=== PATIENT | female | born 1935 | race Caucasian/White ===

== ENCOUNTER 2017-02-21 10:38 | Outpatient (CLI) | payer MEDICARE, OTHER ==
--- NOTE | 2017-02-22 15:49 | Mammography Report ---
DIGITAL SCREENING MAMMOGRAM: 02/21/2017 CLINICAL INDICATION: An 81-year-old with personal history of left breast cancer, status post lumpecto my and radiation therapy, family history of breast cancer. COMPARISON: 02/2016, 12/2014, 12/2013, 12/2012. TECHNIQUE: Routine CC and MLO projections were obtained of the breasts. FINDINGS: The breasts demonstrate fatty replacement bilaterally. Coarse and punctate, typically yolie gn calcifications are present. Postoperative and posttreatment changes in the left breast are stable. No suspicious masses, clustered microcalcifications, or regions of architectural distortion are iden tified. IMPRESSION: BENIGN FINDINGS. RECOMMENDATION: ROUTINE ANNUAL SCREENING UNLESS OTHERWISE CLINICALLY INDICATED. BIRADS CATEGORY 2-BENIGN FINDINGS. STANDARD QUALIFYING STATEMENTS 1. This examination was reviewed with the aid of Computer-Aided Detection (CAD). 2. A negative or benign imaging report should not delay biopsy if clinically suspicious findings are present. Consider surgical consultation if warranted. More than 5% of cancers are not identified by i maging. 3. Dense breasts may obscure an underlying neoplasm. JOB #: [id number] EXT JOB #:[id number]
== END 2017-02-21 10:39 | disposition home or self-care (01) ==
LOC: DI.N 10:38
PROVIDERS: ATTEND Physician Assistant
DX: Z12.31 Encounter for screening mammogram for malignant neoplasm of breast (principal); Z85.3 Personal history of malignant neoplasm of breast
CPT/HCPCS: 77067

== ENCOUNTER 2018-03-13 09:13 | Outpatient (CLI) | payer MEDICARE, OTHER ==
--- NOTE | 2018-03-16 13:57 | Mammography Report ---
Reason: SCREENING MAMMO, HX BREAST CA Procedure Date: 03/13/2018 Accession Number: [id number] / [id number] Procedure: [facility]LENA - Screening Mammo Dig Bilat CPT Code: FULL RESULT: EXAM: Screening Mammo Dig Bilat DATE: 03/13/2018 10:25 AM CLINICAL HISTORY: Screening mammogram TECHNIQUE: Bilateral CC and MLO views were obtained. COMPARISON: Mammogram 02/21/2017 FINDINGS: There are scattered fibroglandular densities. There is stable breast asymmetry and benign-appearing calcifications. No suspicious masses, clustered microcalcifications, or regions of architectural distortion are identified. IMPRESSION: Benign findings RECOMMENDATION: Routine annual screening unless otherwise clinically indicated. BIRADS CATEGORY 2: Benign findings STANDARD QUALIFYING STATEMENTS: 1. This examination was reviewed with the aid of Computer-Aided Detection (CAD). 2. A negative or benign imaging report should not delay biopsy if clinically suspicious findings are present. Consider surgical consultation if warrented. More than 5% of cancers are not identified by imaging. 3. Dense breasts may obscure an underlying neoplasm.
== END 2018-03-13 09:14 | disposition home or self-care (01) ==
LOC: DI 09:13
DX: Z12.31 Encounter for screening mammogram for malignant neoplasm of breast (principal)
CPT/HCPCS: 77067

== ENCOUNTER 2018-12-28 11:21 | Emergency (ER) | payer MEDICARE, OTHER ==
--- NOTE | 2018-12-28 11:45 | ED Physician Documentation ---
History of Present Illness - Stated complaint Stated Complaint: ABDOMINAL PX - Chief complaint Chief Complaint: Abd Pain - History obtained from History obtained from: Patient - History of Present Illness Timing: Prior to arrival - Additonal information Additional information: Patient is an 83-year-old female with complicated past medical history including multiple abdominal surgeries such as colostomy presenting with midline abdominal pain near her colostomy, as well as decreased stool output, nausea, and vomiting of dark material that started earlier today. Patient denies any complications with her stoma or colostomy and reports normal output until just recently. Patient denies fever, chills, or urinary changes. No other improving or worsening factors noted. 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: Tubal ligation, Hysterectomy, Oophrectomy Cardiovascular: CABG HEENT: Tonsil/Adenoidectomy - Present Medications Home Medications: Ambulatory Orders Medication Instructions Recorded Confirmed Diltiazem HCl [Dilt-Cd] 120 mg PO ONCEDAILY 01/23/13 03/23/15 Hydrochlorothiazide 50 mg PO ONCEDAILY 01/23/13 03/23/15 Levothyroxine [Synthroid] 75 mcg PO QDAC 01/23/13 03/23/15 Lisinopril [Zestril] 40 mg PO ONCEDAILY 01/23/13 03/23/15 Simvastatin 40 mg PO ONCEDAILY 01/23/13 03/23/15 Aspirin 81 mg 03/23/15 03/23/15 HYDROcod/ACETAM 5/325 [[place] 5/325] 1 ea PO Q6H PRN #15 tablet 03/23/15 Potassium Chloride [Klor-Con 10] 10 meq 03/23/15 03/23/15 Trimethoprim 100 mg 03/23/15 03/23/15 predniSONE [Deltasone] 40 mg PO DAILY 5 Days tablet 03/23/15 - Allergies Allergies/Adverse Reactions: Allergies Allergy/AdvReac Type Severity Reaction Status Date / Time azithromycin Allergy Unknown unknown Verified 03/23/15 10:10 dicloxacillin [Dicloxacillin] Allergy Unknown unknown Verified 03/23/15 10:10 - Social History Does the pt smoke?: No Smoking Status: Never smoker Does the pt drink ETOH?: No Does the pt have substance abuse?: No - Immunizations Immunizations are current?: Yes PD ED PE NORMAL - Vitals Vital signs reviewed: Yes - General General: Alert and oriented X 3, No acute distress, Well developed/nourished - HEENT HEENT: Atraumatic, Moist mucous membranes - Cardiac Cardiac: RRR, No murmur - Respiratory Respiratory: No respiratory distress, Clear bilaterally - Abdomen Abdomen: Soft. No: Non tender (Extremely mild tenderness in midline just right to the colostomy. Difficult to visualize stoma given opaque bag, but no obvious drainage, erythema, tenderness or other complications noted.) - Derm Derm: Normal color, Warm and dry, No rash - Extremities Extremities: No deformity, No tenderness to palpate - Neuro Neuro: Alert and oriented X 3, No motor deficit, No sensory deficit - Psych Psych: Normal mood, Normal affect Results - Vitals Vitals: Vital Signs - 24 hr 12/28/18 12/28/18 11:40 15:47 Temperature 36.7 C Heart Rate 67 80 Respiratory 18 14 Rate Blood Pressure 169/56 H 159/66 H O2 Saturation 97 99 Oxygen O2 Source Room air - Labs Labs: Laboratory Tests 12/28/18 12/28/18 12/28/18 12:03 12:03 12:03 WBC 14.2 H RBC 3.47 L Hgb 11.0 L Hct 33.3 L MCV 96.0 MCH 31.7 H MCHC 33.0 RDW 12.9 Plt Count 313 MPV 10.1 Neut # (Auto) 11.5 H Lymph # (Auto) 1.6 [place] # (Auto) 0.8 Eos # (Auto) 0.2 Baso # (Auto) 0.0 Absolute Nucleated RBC 0.00 Nucleated RBC % 0.0 PT 12.4 INR 1.1 APTT 24.5 L Sodium 142 Potassium 4.3 Chloride 105 Carbon Dioxide 23 Anion Gap 14.0 H BUN 33 H Creatinine 1.3 H Estimated GFR (MDRD) 39 L Glucose 173 H Lactic Acid Calcium 9.4 Total Bilirubin 0.6 AST 28 ALT 25 Alkaline Phosphatase 80 Total Protein 7.1 Albumin 3.8 Globulin 3.3 Albumin/Globulin Ratio 1.2 Lipase 73 H Urine Color Urine Clarity Urine pH Ur Specific [place] Urine Protein Urine Glucose (UA) Urine Ketones Urine Occult Blood Urine Nitrite Urine Bilirubin Urine Urobilinogen Ur Leukocyte Esterase Urine RBC Urine WBC Ur Squamous Epith Cells Urine Bacteria Urine Casts Ur Microscopic Review Urine Culture Comments 12/28/18 12/28/18 12:03 13:25 WBC RBC Hgb Hct MCV MCH MCHC RDW Plt Count MPV Neut # (Auto) Lymph # (Auto) [place] # (Auto) Eos # (Auto) Baso # (Auto) Absolute Nucleated RBC Nucleated RBC % PT INR APTT Sodium Potassium Chloride Carbon Dioxide Anion Gap BUN Creatinine Estimated GFR (MDRD) Glucose Lactic Acid 1.9 Calcium Total Bilirubin AST ALT Alkaline Phosphatase Total Protein Albumin Globulin Albumin/Globulin Ratio Lipase Urine Color YELLOW Urine Clarity SL Urine pH 5.5 Ur Specific [place] 1.015 Urine Protein NEGATIVE Urine Glucose (UA) NEGATIVE Urine Ketones NEGATIVE Urine Occult Blood TRACE-INTA Urine Nitrite NEGATIVE Urine Bilirubin NEGATIVE Urine Urobilinogen 0.2 (NORMAL) Ur Leukocyte Esterase SMALL H Urine RBC 0-5 Urine WBC 6-10 H Ur Squamous Epith Cells MOD Squamous H Urine Bacteria Moderate H Urine Casts 0-2 Hyaline Casts Ur Microscopic Review INDICATED Urine Culture Comments NOT INDICATED PD MEDICAL DECISION MAKING - ED course Complexity details: reviewed old records, reviewed results, re-evaluated patient, considered differential, d/w patient, d/w family ED course: Patient presenting with abdominal pain, nausea, and vomiting concerning for complications with her known colostomy including diverticulitis or small bowel obstruction. Patient does report history of obstructions in the past. Patient has had multiple abdominal surgeries including cholecystectomy, hiatal hernia repair, hysterectomy and more. Patient started on IV fluids and provided nausea and pain medication, which were repeated in the ED as needed. Screening lab work returned relatively unremarkable except for mild leukocytosis at 14.2. Urinalysis showed presence of leukocyte esterase, white blood cells, bacteria, but heavy amount of squamous cells and have lower suspicion for UTI at this time. Initially obtain CT abdomen/pelvis without contrast given patient's allergy which was concerning for small bowel obstruction and upon discussion with radiology and general surgery, gave oral contrast and repeat CT abdomen/pelvis. Repeat CT did not show progression of contrast and confirmed presence of small bowel obstruction. Again spoke with general surgery who also spoke with anesthesia and hospitalist, and all agreed that patient is likely to require transfer given her level of complexity. After discussions with patient and family, this is also her preference. NG placed in ED without complication. Unfortunately, [facility] is unable to accept patients at this time. Contacted [facility] for possible transfer and still awaiting return phone call. Patient family updated. Patient signed out to Dr. Cedeno who will continue with transfer process. Departure - Departure Disposition: 02 Transfer Acute Care Hosp Clinical Impression: Small bowel obstruction
[2018-12-28] MEDS ORDERED: ONDANSETRON 4 MG/2 ML VIAL IVP STA ×3 (11:53→18:06)
[2018-12-28] MEDS ORDERED: SODIUM CHLORIDE 0.9% 1,000 ML IV ONE (11:53)
[2018-12-28] MEDS ORDERED: fentaNYL 100 MCG/2 ML VIAL IVP STA ×2 (11:53→15:57)
[2018-12-28 12:09] LABS: BASOPHILS % (AUTO) 0.2 %; EOSINOPHILS # (AUTO) 0.2 10^3/uL (0.0-0.7); EOSINOPHILS % (AUTO) 1.4 %; LYMPHOCYTES # (AUTO) 1.6 10^3/uL (1.5-3.5); LYMPHOCYTES % (AUTO) 11.3 %; MEAN CORPUSCULAR HEMOGLOBIN 31.7 pg (27.0-31.0); MEAN PLATELET VOLUME 10.1 fL (7.9-10.8); MONOCYTES # (AUTO) 0.8 10^3/uL (0.0-1.0); MONOCYTES % (AUTO) 5.6 %; NEUTROPHILS # (AUTO) 11.5 10^3/uL (1.5-6.6); NEUTROPHILS % (AUTO) 80.9 %; PLT - PLATELET COUNT 313 10^3/uL (130-450); RED BLOOD COUNT 3.47 10^6/uL (4.20-5.40); RED CELL DISTRIBUTION WIDTH 12.9 % (12.0-15.0); WHITE BLOOD COUNT 14.2 x10^3/uL (4.8-10.8)
[2018-12-28 12:20] LABS: INR 1.1 (0.8-1.2); PT - PROTHROMBIN TIME 12.4 secs (9.9-12.6)
[2018-12-28 12:22] LABS: ALBUMIN 3.8 g/dL (3.2-5.5); ALBUMIN/GLOBULIN RATIO 1.2 (1.0-2.2); BILIRUBIN,TOTAL 0.6 mg/dL (0.2-1.0); CALCIUM 9.4 mg/dL (8.5-10.3); CREATININE 1.3 mg/dL (0.4-1.0); TOTAL PROTEIN 7.1 g/dL (6.7-8.2)
[2018-12-28 12:27] LABS: PARTIAL THROMBOPLASTIN TIME 24.5 secs (24.9-33.3)
--- NOTE | 2018-12-28 13:31 | CT Report ---
Reason: Colostomy with pain, nausea, vomiting Procedure Date: 12/28/2018 Accession Number: [id number] / [id number] Procedure: CT - Abdomen/Pelvis WO CPT Code: FULL RESULT: EXAM: CT ABDOMEN AND PELVIS (CT KUB) EXAM DATE: 12/28/2018 01:05 PM. CLINICAL HISTORY: Colostomy with pain, nausea, vomiting. COMPARISONS: ABD/PEL 04/03/2011 9:32 AM. TECHNIQUE: Routine axial helical CT imaging was performed through the abdomen and pelvis without IV contrast. Reconstructions: Coronal and sagittal. In accordance with CT protocol optimization, one or more of the following dose reduction techniques were utilized for this exam: automated exposure control, adjustment of mA and/or KV based on patient size, or use of iterative reconstructive technique. FINDINGS: Examination is limited by absence of intravenous or oral contrast. Lung Bases: Redemonstration of a large fluid-containing hiatal hernia, possibly increased compared to 2010. The patient is status post cholecystectomy. The patient is status post distal colonic resection with colostomy formation and previous parastomal hernia now status post interval ventral mesh repair with persistent large bowel parastomal herniation. Despite fecal material throughout the visualized colon, small bowel obstruction is suspected as the distal small bowel is collapsed and there are multiple dilated loops of small bowel with focal fecalization and maximal small bowel loop dilation in the left lower quadrant, caliber of up to 4.6 cm, see image 22 series 5. Statistically speaking, the etiology is felt to be more likely due to adhesions related to prior surgery; however given abundant fat stranding and fluid in the region and immediate adjacency to the colon with abundant diverticuli, diverticulitis as the instigating event for the small bowel obstruction is not excluded with this study, correlate to evidence of sepsis. No evidence of closed loop configuration on this limited study. No free air. Prominent lymph nodes are seen throughout the mesentery and retroperitoneum, with limitations of the examination. These do not exceed 1 cm in short axis, favor reactive etiology. Adrenal glands are nonspecifically thickened on both sides, no discrete mass is seen. The pancreas contains an apparent 1.7 x 1.4 cm cystic lesion as seen on image 20 series 3 and image 21 series 5. Right kidney contains 4.0 x 3.9 cm exophytic cystic lesion which measures slightly greater than simple water by attenuation, statistically most likely benign but not characterized on this examination. The noncontrast liver, spleen and left kidney are unremarkable. No aggressive osseous lesions are seen. IMPRESSION: Small bowel obstruction in the left lower quadrant with considerations related to prior surgery and diverticulosis as described in detail above. Cystic pancreatic lesion, characterization and/or on follow-up on a routine basis as clinically indicated. Uncharacterized right renal cyst as described. Characterization and/or follow-up on a routine basis as clinically indicated. CRITICAL RESULT: The findings were discussed with Dr. Craig on 12/28/2018 at approximately 1:30 PM. RADIA
[2018-12-28 13:37] LABS: BILIRUBIN,URINE NEGATIVE (NEGATIVE); GLUCOSE, URINE (UA) NEGATIVE (NEGATIVE); KETONES,URINE (UA) NEGATIVE (NEGATIVE); LEUKOCYTE ESTERASE, URINE SMALL (NEGATIVE); NITRITE,URINE NEGATIVE (NEGATIVE); OCCULT BLOOD,URINE TRACE-INTA (NEGATIVE); PH,URINE 5.5 PH (5.0-7.5); PROTEIN,URINE NEGATIVE (NEGATIVE); UROBILINOGEN,URINE 0.2 (NORMAL) E.U./dL (NORMAL)
[2018-12-28 13:48] LABS: CLARITY,URINE SL (CLEAR); RBC,URINE 0-5 /HPF (0-5)
[2018-12-28 13:49] LABS: BACTERIA,URINE Moderate /HPF (None Seen); CASTS, URINE 0-2 Hyaline Casts /LPF; SQUAMOUS EPITHELIAL CELL,UR MOD Squamous (<= Few)
[2018-12-28] MEDS ORDERED: IOVERSOL 320 50 ML VIAL ONE (14:15)
[2018-12-28] MEDS ORDERED: IOVERSOL 320 50 ML VIAL PO ONE (15:03)
--- NOTE | 2018-12-28 15:33 | CT Report ---
Reason: SBO Procedure Date: 12/28/2018 Accession Number: [id number] / [id number] Procedure: CT - Abdomen/Pelvis WO CPT Code: FULL RESULT: EXAM: CT ABDOMEN AND PELVIS EXAM DATE: 12/28/2018 03:08 PM. CLINICAL HISTORY: SBO. COMPARISONS: ABDOMEN/PELVIS W/O 12/28/2018 1:00 PM. TECHNIQUE: Routine helical CT imaging was performed through the abdomen and pelvis. IV contrast: . Enteric contrast: No. Reconstructions: Coronal and sagittal. In accordance with CT protocol optimization, one or more of the following dose reduction techniques were utilized for this exam: automated exposure control, adjustment of mA and/or KV based on patient size, or use of iterative reconstructive technique. FINDINGS: Limited exam without intravenous contrast, particular of solid abdominal organs. Lung Bases: Left lung base scarring. Liver: Unremarkable. Gallbladder/Bile Ducts: Cholecystectomy. Spleen: Unremarkable. Pancreas: Hypoattenuating lesion in the body is unchanged. Adrenal Glands: Unremarkable. Kidneys: No hydronephrosis. Right renal cyst. Peritoneal Cavity/Bowel: Moderate to large hiatal hernia. Gastric distention is similar. Small obstruction again demonstrated with mildly increased small bowel dilation from before. Enteric contrast present within proximal to mid dilated small bowel. The distal dilated small bowel and decompressed small bowel do not contain enteric contrast. Transition point appears to be in the left lower quadrant. The colon is mostly decompressed. Mild inflammatory changes in the left lower quadrant are similar. No significant free fluid. No free air. Left lower quadrant ostomy is unchanged. Surgical changes from ventral hernia repair. Pelvic Organs: Small focus of gas in the urinary bladder. Uterus is absent. Vasculature: Moderate atherosclerosis. Bones: Osteopenia. Degenerative changes in the spine. Other: None. IMPRESSION: Small bowel obstruction again demonstrated with mildly increased dilation of small bowel loops from before. RADIA
--- NOTE | 2018-12-28 18:47 | CONSULTATION NOTE ---
Referring Provider Name of Referring Provider:: Dr. Middleton Consult Date: 12/28/18 Chief Complaint - Chief Complaint Chief Complaint: Abdominal pain accompanied by decreased colostomy output History of Present Illness - Admitted From Admitted From:: Not - History Obtained From Records Reviewed: Yes, extensively History obtained from: Chart and Dr. Middleton Exam Limitations: Patient not very communicative - History of Present Illness HPI Comment/Other: Patient is an 83-year-old female who presented emergency department with abdominal pain accompanied by decreased colostomy output. Review of her medical records reveals an 83-year-old female with multiple medical comorbidities and multiple abdominal operations that have resulted in a colostomy, a history of a pericolostomy hernia treated with mesh, now apparent repeat hernia, likely diverticulitis and a small bowel obstruction related either to the diverticulitis, adhesions, or mesh. The potential scope of an operation to repair the situation far exceeds the capabilities of our critical access hospital. She will most certainly require complex wound care and we do not have that capability. She would likely require the input of a assembling motor builder and again we do not have a assembling motor builder. Running her surgical risks through NSQIP her average length of stay approaches 14 days with an 85% chance that she will be discharged to a detention. 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: Tubal ligation, Hysterectomy, Oophrectomy Cardiovascular: reports: CABG HEENT: reports: Tonsil/Adenoidectomy Meds/Allgy - Home Medications Home Medications: Ambulatory Orders Medication Instructions Recorded Confirmed Diltiazem HCl [Dilt-Cd] 120 mg PO ONCEDAILY 01/23/13 03/23/15 Hydrochlorothiazide 50 mg PO ONCEDAILY 01/23/13 03/23/15 Levothyroxine [Synthroid] 75 mcg PO QDAC 01/23/13 03/23/15 Lisinopril [Zestril] 40 mg PO ONCEDAILY 01/23/13 03/23/15 Simvastatin 40 mg PO ONCEDAILY 01/23/13 03/23/15 Aspirin 81 mg 03/23/15 03/23/15 HYDROcod/ACETAM 5/325 [[place] 5/325] 1 ea PO Q6H PRN #15 tablet 03/23/15 Potassium Chloride [Klor-Con 10] 10 meq 03/23/15 03/23/15 Trimethoprim 100 mg 03/23/15 03/23/15 predniSONE [Deltasone] 40 mg PO DAILY 5 Days tablet 03/23/15 - Allergies Allergies/Adverse Reactions: Allergies Allergy/AdvReac Type Severity Reaction Status Date / Time azithromycin Allergy Unknown unknown Verified 03/23/15 10:10 dicloxacillin [Dicloxacillin] Allergy Unknown unknown Verified 03/23/15 10:10 Exam - Vital Signs Reviewed Vital Signs: Yes Vital Signs: Vital Signs x48h Temp Pulse Resp BP Pulse Ox 12/28/18 15:47 80 14 159/66 H 99 12/28/18 11:40 36.7 C 67 18 169/56 H 97 - Physical Exam General Appearance: positive: No acute distress Comments/Other: No physical examination was doneplease look at plan. Conclusion/Plan - Diagnosis Diagnosis: Small bowel obstruction either due to adhesions or involvement with colonic diverticulitis - Plan Plan: The minute I went into the room to see the patient and her the took me aside and explained that they wish to be transferred to the [facility] for her care. I explained that this was entirely appropriate and would abide by their wishes. I wished her good health and speedy recovery. 30 minutes of mece-lg-nbed time was spent with the patient, almost all in explanation and discussion, coordination of their care and completion of the requisite paperwork Dragon disclaimer: This document was created in part using voice recognition technology. Because of the inherent limitations of the system ([employer]'s [employer] D[employer] user manual states that the licensee understands that speech recognition is a statistical process and that recognition errors are inherent in the process), occasional same sounding word substitutions and grammatical errors do occur and persist despite proofreading. Please read this document for context. - Lab Results Lab results reviewed: Yes Fish Bones: 12/28/18 12:03 12/28/18 12:03 - Diagnostic Imaging Results Diagnostic Imaging Results: positive: Final report reviewed, Discussed with radiologist, Read independently
--- NOTE | 2018-12-28 19:18 | ED Physician Documentation ---
ED Addendum - Addendum Addendum: 12/28/18 19:[address] Middleton at shift change. I spoke with Dr. Fowler at [facility] who accepts and cobras were completed. She is stable for transport to a higher level of care.
[2018-12-28] MEDS ORDERED: METOCLOPRAMIDE 10 MG/2 ML VIAL IVP STA (21:48)
[2018-12-28 22:03] VITALS: BP 157/55
== END 2018-12-28 22:06 | disposition short-term general hospital (02) ==
LOC: ED 11:21
DX: K56.609 Unspecified intestinal obstruction, unspecified as to partial versus complete obstruction (principal); Z93.3 Colostomy status; K44.9 Diaphragmatic hernia without obstruction or gangrene; Z90.49 Acquired absence of other specified parts of digestive tract; I10 Essential (primary) hypertension; Z79.82 Long term (current) use of aspirin
CPT/HCPCS: 36415; 74176; 80053; 81001; 83605; 83690; 85025; 85610; 85730; 96361; 96374; 96375; 96376; 99283; 99284; J2765; 81003; 87086

== ENCOUNTER 2019-01-02 10:00 | Outpatient (CLI) | payer MEDICARE, OTHER | END 2019-01-02 23:59 | disposition home or self-care (01) | LOC: LAB.R 10:00 | PROVIDERS: ATTEND Family Medicine | DX: N39.0 Urinary tract infection, site not specified (principal) | CPT/HCPCS: 87077; 87086 ==

== ENCOUNTER 2019-01-09 08:00 | Outpatient (CLI) | payer MEDICARE, OTHER | END 2019-01-09 23:59 | disposition home or self-care (01) | LOC: LAB.WCP 08:00 | PROVIDERS: ATTEND Physician Assistant | DX: N39.0 Urinary tract infection, site not specified (principal) | CPT/HCPCS: 87086 ==

== ENCOUNTER 2019-06-03 05:53 | Day surgery (SDC) | payer MEDICARE, OTHER ==
[2019-06-03] MEDS ORDERED: NEOSTIGMINE 1 MG/1 ML 10 ML MDV IVP ONE (05:54)
[2019-06-03] MEDS ORDERED: fentaNYL 100 MCG/2 ML VIAL IVP ONE (05:54)
[2019-06-03] MEDS ORDERED: DEXAMETHASONE 4 MG/ML VIAL IVP ONE (05:54)
[2019-06-03] MEDS ORDERED: PROPOFOL 200 MG/20 ML VIAL IVP ONE (05:54)
[2019-06-03] MEDS ORDERED: ePHEDrine 50 MG/ML VIAL IVP ONE (05:54)
[2019-06-03] MEDS ORDERED: LACTATED RINGERS 1,000 ML IV ONE ×2 (07:00→08:22)
--- NOTE | 2019-06-03 07:07 | ANESTHESIA ---
Pre-Anesthesia VS, & Labs - Diagnosis bladder lesion - Procedure cystoscopy, biopsy Vital Signs: Temp Pulse Resp BP Pulse Ox 36.0 C L 50 L 20 181/53 H 100 06/03/19 06:40 06/03/19 06:40 06/03/19 06:40 06/03/19 06:40 06/03/19 06:40 Height 5 ft 2 in Weight (kg) 130 kg Body Mass Index 23.8 - NPO >8 hours - Is Patient ?: No Home Medications and Allergies Home Medications: Ambulatory Orders Oxybutynin Chloride [Ditropan Xl] 5 mg PO 06/03/19 Hydrochlorothiazide 12.5 mg PO ONCEDAILY 01/23/13 Levothyroxine [Synthroid] 75 mcg PO DAILY 01/23/13 Lisinopril [Zestril] 40 mg PO BID 01/23/13 Aspirin 81 mg PO DAILY 03/23/15 Amlodipine Besylate 5 mg PO BID 12/28/18 Atorvastatin [Lipitor] 40 mg PO DAILY 12/28/18 Doxazosin [Cardura] 4 mg PO BID 12/28/18 Metoprolol Succinate/Hctz [Metoprolol ER-Hctz 25-12.5 mg] 25 mg PO DAILY 12/28/18 Allergies/Adverse Reactions: Allergies Allergy/AdvReac Type Severity Reaction Status Date / Time azithromycin Allergy Unknown unknown Verified 03/23/15 10:10 dicloxacillin [Dicloxacillin] Allergy Unknown unknown Verified 03/23/15 10:10 Anes History & Medical History - Anesthetic History Anesthesia Complications: reports: No previous complications - Medical History Cardiovascular: reports: Hypertension, High cholesterol, Coronary artery disease, [place] Pulmonary: reports: None Gastrointestinal: reports: None Urinary: reports: Incontinence, Other Neuro: reports: CVA, Other (occluded right carotid artery) Musculoskeletal: reports: Osteoarthritis Endocrine/Autoimmune: reports: HyPOthyroidism Blood Disorders: reports: None Smoking Status: Never smoker Psychosocial: reports: No issues indicated - Surgical History General: Cholecystectomy, Bowel surgery, Hiatal hernia repair Eyes Ears Nose Throat (EENT): Tonsil/Adenoidectomy Cardiothoracic: CABG Gynecologic: Tubal ligation, Hysterectomy, Oophrectomy Exam General: Alert, Oriented x3, Cooperative, No acute distress Dental: WNL Mouth Openin Fingerbreadth Neck Mobility: Normal Mallampati classification: II Thyromental Distance: greater than 6 cm Respiratory: Lungs clear, Normal breath sounds, No respiratory distress, No accessory muscle use Cardiovascular: Regular rate, Normal S1, Normal S2, No murmurs Mental/Cognitive Status: Alert/Oriented X3, Normal for patient Plan Anesthesia Type: General Consent for Procedure(s) Verified and Reviewed: Yes Code Status: Attempt Resuscitation ASA classification: 3-Severe systemic disease Is this case an emergency?: No
[2019-06-03] MEDS ORDERED: levoFLOXacin 500 MG/100 ML 500 MG/100 ML BAG IV ONE ×2 (07:10→07:53)
[2019-06-03] MEDS ORDERED: PHENAZOPYRIDINE 100 MG TABLET PO STA (09:23)
[2019-06-03] MEDS ORDERED: ONDANSETRON 4 MG/2 ML VIAL IVP PRN (09:23)
[2019-06-03] MEDS ORDERED: HYDROcod/ACETAM 5/325 MG TABLET PO PRN (09:23)
--- NOTE | 2019-06-03 09:41 | IMMEDIATE POSTOPERATIVE NOTE ---
Immediate Postoperative Note - Procedure Note Procedure Date: 06/03/19 Pre-Op Diagnosis: bladder lesion Procedure: bladder biopsy with fulguration Post-Op Diagnosis: same Primary Surgeon: Soco Anesthesia Type: General ET tube, General LMA Complications: No complications Estimated Blood Loss (in cc): 25 Specimens and Cultures: bladder biopsy, cold cup Plan of Care: PACU awake pieter
[2019-06-03 10:28] VITALS: BP 134/53
--- NOTE | 2019-06-04 19:50 | PROCEDURE REPORT ---
DATE OF SERVICE: 06/03/2019 Physician: Teresa Wan MD PROCEDURE PERFORMED: Cystoscopy with bladder biopsy and fulguration, irrigation and removal of clot. PREOPERATIVE DIAGNOSIS: Bladder lesion. POSTOPERATIVE DIAGNOSIS: Bladder lesion. SURGEON: Teresa Wan MD INDICATIONS: The patient is an elderly woman presenting with urinary symptoms and at evaluation cyst oscopy found to have a fairly prolific, large plaque-like, whitish flaky lesion in the bladder. A sm all biopsy in clinic was unrevealing, showing benign squamous metaplasia; however, with the depth of the lesion, we elected to take her to the operating room for more formal biopsy. DESCRIPTION OF PROCEDURE: After appropriate informed consent was obtained, the patient was brought t o the operating room and received IV antibiotics prior to onset of the procedure. SCDs were placed. Adequate general anesthesia induced. She was carefully placed in dorsal lithotomy position. All pr essure points were carefully padded cleaned, prepped, and draped in the usual sterile fashion. Rigid scope was introduced into the bladder, which was surveyed in systematic fashion. We used both the 3 0 and the 70-degree lenses to document what we could see. It was again noted to be a very hypertroph ic-looking, whitish plaque-like thickening to a fairly large portion of the patient's trigone and rig ht and left bladder wall. This was whitish with some cellular debris floating around. There was no erythema or areas of concern for lili papillary urothelial tumors; however, this was very odd in yareli earance. We used ultimately cold cup biopsies to take 3 good financial service representative biopsies without cautery artifact. Initially, we were trying to use the Bugbee electrocautery; however, this was insufficien t and ultimately transitioned to using the resectoscope set just so we could use the rollerball. The re was some ooze which was taking place underneath some organized clot. Due to lack of an Ellik evac uator, we irrigated by hand with a large Krueger catheter and a 60 mL catheter-tip syringe, and ultimat anastasia we were able to go in and see that there was excellent hemostasis. We could not remove the clot along the bottom of the bladder in order to inspect this, but we gave a good long look at it and foun d it to be free of any further ooze. Specimens were handed off for permanent pathology. The patient 's bladder was drained completely. She tolerated this very well, was awakened and taken in stable co ndition to the postanesthesia care unit. TD: 06/04/2019 16:18
== END 2019-06-03 05:54 | disposition home or self-care (01) ==
LOC: SDS 05:53
PROVIDERS: ATTEND Urology
PROC: 0TBB8ZX Excision of Bladder, Via Natural or Artificial Opening Endoscopic, Diagnostic (ICD-10-PCS; principal; 2019-06-03 07:30)
DX: N32.9 Bladder disorder, unspecified (principal); N32.89 Other specified disorders of bladder; R39.15 Urgency of urination; I10 Essential (primary) hypertension; I25.10 Atherosclerotic heart disease of native coronary artery without angina pectoris; I25.2 Old myocardial infarction; Z95.1 Presence of aortocoronary bypass graft
CPT/HCPCS: 52204; J7120

== ENCOUNTER 2020-04-22 13:21 | Outpatient (CLI) | payer MEDICARE, OTHER ==
--- NOTE | 2020-04-23 15:20 | Mammography Report ---
BILATERAL DIGITAL SCREENING MAMMOGRAM: 04/22/2020 CLINICAL: Routine screening. Personal history of left breast cancer. Comparison is made to exams dated: 03/13/2018 mammogram, 02/21/2017 mammogram, 02/15/2016 mammogram, ultrasound, 04/27/2015 mammogram, and 01/26/2015 mammogram - [facility]. T here are scattered fibroglandular elements in both breasts. There are benign calcifications in both breasts. There also are benign post operative findings in th e left breast. No significant masses, calcifications, or other findings are seen in either breast. There has been no significant interval change. IMPRESSION: BENIGN There is no mammographic evidence of malignancy. A 1 year screening mammogram is recommended. This exam was interpreted at Station ID: [id number]. NOTE: For mammograms, a report in lay terms will be sent to the patient. Approximately 15% of breast malignancies will not be visualized mammographically. In the management of a palpable breast mass, a negative mammogram must not discourage biopsy of a clinically suspicious lesion. Electronically Signed By: Eliel Aguilar M.D. ddp/penrad:04/22/2020 14:57:12 ACR BI-RADS Category 2: Benign Finding(s) 3342F PARENCHYMAL PATTERN: (A) - The breast(s) demonstrate(s) scattered fibroglandular densities. BI-RADS CATEGORY: (2) - 2 RECOMMENDATION: (ANNUAL) - Recommend routine annual screening mammography. [id number] 1 year screening LATERALITY: (B)
== END 2020-04-22 13:22 | disposition home or self-care (01) ==
LOC: DI.N 13:21
DX: Z12.31 Encounter for screening mammogram for malignant neoplasm of breast (principal); Z85.3 Personal history of malignant neoplasm of breast
CPT/HCPCS: 77067

== ENCOUNTER 2020-08-12 14:14 | Outpatient (CLI) | payer MEDICARE, OTHER ==
--- NOTE | 2020-08-12 16:16 | XRAY Report ---
PROCEDURE: Knee 3 View LT INDICATIONS: OA L KNEE, OSTEOPOROSIS, OTHR MENOPAUSAL DISORDRS TECHNIQUE: 3 views of the left knee were acquired. COMPARISON: None. FINDINGS: Bones: There is generalized osteopenia. Full-thickness joint space narrowing is seen in the lateral f emorotibial compartment. There is subchondral sclerosis, and a superimposed insufficiency fracture is not excluded. The medial and anterior joint spaces are maintained Soft tissues: Small joint effusion. No suspicious soft tissue calcifications. Atherosclerotic calci fications are seen along the expected course of the popliteal artery. IMPRESSION: Severe osteoarthrosis of the lateral femorotibial compartment with subchondral sclerosis. A superimpo sed subchondral insufficiency fracture is not excluded, and further evaluation with noncontrast MRI o r CT may be obtained if there is suspicion for an underlying fracture. Reviewed by: Morgan Willis MD on 08/12/2020 4:15 PM PST Approved by: Morgan Willis MD on 08/12/2020 4:15 PM PST Station ID: [id number]
--- NOTE | 2020-08-12 16:32 | DEXA Report ---
PROCEDURE: Dexa Spine and/or Hip INDICATIONS: OSTEOPOROSIS, OTHER MENOPAUSAL DISORDERS TECHNIQUE: Dual energy x-ray absorptiometry (DXA) was performed on a [employer] System. Regions measur ed are the AP Spine, femoral neck, and if needed forearm. COMPARISON: Dexa, 05/08/2015. FINDINGS: Left Hip: Bone Mineral Density 0.655 g/cm/cm,T score -2.8, Left Femoral Neck: Bone Mineral Density 0.655 g/cm/cm, T score -2.7. Right forearm: Bone Mineral Density 0.456 g/cm/cm, T score -3.6, (T score greater or equal to -1.0: NORMAL) (T score from -1.1 to -2.4: OSTEOPENIA) (T score less than or equal to -2.5 to: OSTEOPOROSIS) Impression: Based on WHO criteria, the patient is osteoporotic. Because of change in technology, dire ct comparison with the last exam is not possible. Patients with diagnosis of osteoporosis or osteopenia should have regular bone mineral density assess ment. For those eligible for Medicare, routine testing is allowed once every 2 years. Testing frequ ency can be increased for patients who have rapidly progressing disease or for those who are receivin g medical therapy to restore bone mass. Reviewed by: Clotilde Sandoval MD on 08/12/2020 4:30 PM PST Approved by: Clotilde Sandoval MD on 08/12/2020 4:30 PM PST Station ID: [id number]
== END 2020-08-12 14:15 | disposition home or self-care (01) ==
LOC: DI 14:14
PROVIDERS: ATTEND Family Medicine
DX: Z13.820 Encounter for screening for osteoporosis (principal); M81.0 Age-related osteoporosis without current pathological fracture; N95.8 Other specified menopausal and perimenopausal disorders; M17.12 Unilateral primary osteoarthritis, left knee

== ENCOUNTER 2021-02-05 14:58 | Outpatient (CLI) | payer MEDICARE, OTHER | END 2021-02-05 14:59 | disposition short-term general hospital (02) | LOC: EMS 14:58 | DX: I48.91 Unspecified atrial fibrillation (principal) | CPT/HCPCS: A0425; A0427 ==

== ENCOUNTER → 2021-04-21 | Outpatient (CLI) | payer MEDICARE, OTHER | LOC: LAB 08:00 | PROVIDERS: ATTEND Family Medicine | DX: R30.0 Dysuria (principal) | CPT/HCPCS: 87086 ==

== ENCOUNTER 2021-04-26 08:00 | Outpatient (CLI) | payer MEDICARE, OTHER ==
--- NOTE | 2021-04-27 08:03 | Mammography Report ---
BILATERAL DIGITAL SCREENING MAMMOGRAM: 04/26/2021 CLINICAL: Routine screening. Personal history of left breast cancer. Comparison is made to exams dated: 04/22/2020 mammogram, 03/13/2018 mammogram, 02/21/2017 mammogram, mammogram, 04/27/2015 ultrasound, and 04/27/2015 mammogram - [facility]. The tissue of both breasts is predominantly fatty. There is a stable benign calcification in the left breast. There also are stable benign calcificatio ns in the right breast. Additionally, there is a biopsy clip in the right breast. Additionally, the re also are benign post operative findings in the left breast. No significant masses, calcifications, or other findings are seen in either breast. There has been no significant interval change. IMPRESSION: BENIGN There is no mammographic evidence of malignancy. A 1 year screening mammogram is recommended. This exam was interpreted at Station ID: [id number]. NOTE: For mammograms, a report in lay terms will be sent to the patient. Approximately 15% of breast malignancies will not be visualized mammographically. In the management of a palpable breast mass, a negative mammogram must not discourage biopsy of a clinically suspicious lesion. Electronically Signed By: Delores enriquez/vladimir:04/26/2021 14:10:16 ACR BI-RADS Category 2: Benign Finding(s) 3342F PARENCHYMAL PATTERN: (F) - The breast(s) demonstrate(s) diffuse fatty replacement. BI-RADS CATEGORY: (2) - 2 RECOMMENDATION: (ANNUAL) - Recommend routine annual screening mammography. [id number] 1 year screening LATERALITY: (B)
== END 2021-04-26 13:10 | disposition home or self-care (01) ==
LOC: DI.N 08:00
PROVIDERS: ATTEND Family Medicine
DX: Z12.31 Encounter for screening mammogram for malignant neoplasm of breast (principal); Z85.3 Personal history of malignant neoplasm of breast
CPT/HCPCS: 87086

== ENCOUNTER 2021-06-02 08:00 | Outpatient (CLI) | payer MEDICARE, OTHER | END 2021-06-02 23:59 | LOC: LAB 08:00 | PROVIDERS: ATTEND Family Medicine | DX: R30.0 Dysuria (principal) | CPT/HCPCS: 87086 ==

== ENCOUNTER 2021-07-09 15:04 | Outpatient (CLI) | payer MEDICARE, OTHER ==
--- NOTE | 2021-07-09 20:45 | Ultrasound Report ---
PROCEDURE: Carotid Doppler Complete INDICATIONS: CAROTID STENOSIS, LEFT TECHNIQUE: Color and pulse Doppler interrogation was performed of both carotid systems, with image documentation and velocity measurements. COMPARISON: 02/23/2007. FINDINGS: Right side: Brachial blood pressure: 184/48 mm Hg. Common carotid artery peak systolic velocity: 64 cm/sec. Internal carotid artery peak systolic velocity: Appears occluded. Internal carotid artery end diastolic velocity: Appears occluded. External carotid artery peak systolic velocity: 1:30 cm/sec. ICA/CCA peak systolic ratio: Not applicable due to apparent occlusion of the internal carotid artery. Valdez scale imaging description: There is echogenic calcified plaque at the carotid bifurcation as we ll as thrombus within the right carotid bulb and apparent occlusion. Percent internal carotid artery stenosis: Appears occluded. . Vertebral artery: Flow direction is antegrade. Left side: Brachial blood pressure: 186/63 mm Hg. Common carotid artery peak systolic velocity: 104 cm/sec. Internal carotid artery peak systolic velocity: 227 cm/sec. Increased from 111 cm/s previously Internal carotid artery end diastolic velocity: 36 cm/sec. External carotid artery peak systolic velocity: 138 cm/sec. ICA/CCA peak systolic ratio: 2.2 . Valdez scale imaging description: There is extensive echogenic calcified plaque within the distal comm on carotid artery, at the carotid bifurcation, and in the carotid bulb Percent internal carotid artery stenosis: 50-69% . Vertebral artery: Flow direction is antegrade. IMPRESSION: 1. Apparent occlusion of the right carotid bulb and internal carotid artery redemonstrated. 2. Prominent calcified plaque in the proximal left carotid bulb with narrowing of 50-69%. The estimate of stenosis included in the report of the imaging study was calculated using the NASCET method Reviewed by: Eliel Hernadez MD on 07/09/2021 8:44 PM PST Approved by: Eliel Hernadez MD on 07/09/2021 8:44 PM PST Station ID: [id number]
== END 2021-07-09 15:05 | disposition home or self-care (01) ==
LOC: DI 15:04
PROVIDERS: ATTEND Physician Assistant Surgical
DX: I65.22 Occlusion and stenosis of left carotid artery (principal)
CPT/HCPCS: 93880

== ENCOUNTER 2021-08-24 09:22 | Outpatient (CLI) | payer MEDICARE, OTHER ==
--- NOTE | 2021-08-24 15:41 | DEXA Report ---
PROCEDURE: Dexa Spine and/or Hip INDICATIONS: MENOPAUSE, OSTEOPOROSIS SCREENING TECHNIQUE: Dual energy x-ray absorptiometry (DXA) was performed on a [employer] System. Regions measur ed are the AP Spine, femoral neck, and if needed forearm. COMPARISON: DEXA to 1021 FINDINGS: Lumbar Spine: Not obtained. Left Hip: Bone Mineral Density 0.606 g/cm/cm,T score -3.2, compared to -2.8 Left Femoral Neck: Bone Mineral Density -0.671 g/cm/cm, T score -2.6, compared to -2.7 Left forearm: Bone Mineral Density 0.465 g/cm/cm, T score -3.5, previous DEXA imaged the right forearm, which demon strated T score of -3.6. (T score greater or equal to -1.0: NORMAL) (T score from -1.1 to -2.4: OSTEOPENIA) (T score less than or equal to -2.5 to: OSTEOPOROSIS) Impression: Progressive now osteoporosis in the left hip. Persistent severe osteopenia/borderline osteoporosis within the left femoral neck and hip. Osteoporosis is present within the left forearm. Patients with diagnosis of osteoporosis or osteopenia should have regular bone mineral density assess ment. For those eligible for Medicare, routine testing is allowed once every 2 years. Testing frequ ency can be increased for patients who have rapidly progressing disease or for those who are receivin g medical therapy to restore bone mass. Reviewed by: Rosanna Post MD on 08/24/2021 3:39 PM PST Approved by: Rosanna Post MD on 08/24/2021 3:39 PM PST Station ID: [id number]
== END 2021-08-24 09:23 | disposition home or self-care (01) ==
LOC: DI 09:22
PROVIDERS: ATTEND Family Medicine
DX: Z13.820 Encounter for screening for osteoporosis (principal); M81.0 Age-related osteoporosis without current pathological fracture; Z78.0 Asymptomatic menopausal state

== ENCOUNTER 2021-10-29 15:38 | Observation (INO) | payer MEDICARE, OTHER ==
--- OUTSIDE RECORDS SUMMARY | 2021-10-29 15:56 | EXTERNAL MEDICAL SUMMARY RPT | Continuity of Care Document ---
:1935 Author Organization [place] Address [address] [place] [address] Phone Care Team Providers Name Role Phone Lemme Unavailable Unavailable Allergies No information. Encounters No information. Medications No information. Problems date description facility [id number] Tachycardia, unspecified [facility] [id number] Cardiomyopathy in diseases classified e [facility] Results No information.
[2021-10-29] MEDS ORDERED: PANTOPRAZOLE 40 MG VIAL IVP STA (15:59)
--- NOTE | 2021-10-29 16:03 | ED Physician Documentation ---
PD HPI ABD PAIN - Stated complaint Stated Complaint: BLACK STOOL,NAUSEA,BLOOD THINNERS - Chief complaint Chief Complaint: Abd Pain - History obtained from History obtained from: Patient - Additional information Additional information: 86-year-old woman on DOAC for A. fib. Extensive history of abdominal surgeries starting with rectal cancer and multiple hernias related to same. Ostomy in place. Black stool since yesterday with nausea without vomiting. No abdominal pain. No history of GI bleeding. Review of Systems Ten Systems: 10 systems reviewed and negative Constitutional: reports: Fatigue Cardiac: denies: Chest pain / pressure, Palpitations Respiratory: reports: Dyspnea (Chronic). denies: Cough GI: reports: Nausea, Bloody / black stool. 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, Hysterectomy, Oophrectomy Cardiovascular: CABG HEENT: Tonsil/Adenoidectomy - Present Medications Home Medications: Ambulatory Orders Medication Instructions Recorded Confirmed Hydrochlorothiazide 12.5 mg PO ONCEDAILY 01/23/13 12/28/18 Levothyroxine [Synthroid] 75 mcg PO DAILY 01/23/13 12/28/18 Lisinopril [Zestril] 40 mg PO BID 01/23/13 12/28/18 Aspirin 81 mg PO DAILY 03/23/15 12/28/18 Amlodipine Besylate 5 mg PO BID 12/28/18 12/28/18 Atorvastatin [Lipitor] 40 mg PO DAILY 12/28/18 12/28/18 Doxazosin [Cardura] 4 mg PO BID 12/28/18 12/28/18 Metoprolol Recio/Hydrochlorothiaz 25 mg PO DAILY 12/28/18 12/28/18 [Metoprolol ER-Hctz 25-12.5 mg] Ciprofloxacin HCl [Cipro] 250 mg PO BID 5 Days #10 tablet 06/03/19 Oxybutynin Chloride [Ditropan Xl] 5 mg PO 06/03/19 Phenazopyridine HCl 200 mg PO TID PRN #20 tablet 06/03/19 - Allergies Allergies/Adverse Reactions: Allergies Allergy/AdvReac Type Severity Reaction Status Date / Time azithromycin Allergy Unknown unknown Verified 10/29/21 15:46 dicloxacillin [Dicloxacillin] Allergy Unknown unknown Verified 10/29/21 15:46 - Social History Does the pt smoke?: No Smoking Status: Never smoker Does the pt drink ETOH?: No Does the pt have substance abuse?: No - Immunizations Immunizations are current?: Yes PD ED PE NORMAL - Vitals Vital signs reviewed: Yes - General General: Alert and oriented X 3, No acute distress - HEENT HEENT: Ears normal, Pharynx benign - Neck Neck: Supple, no meningeal sign, No bony TTP - Cardiac Cardiac: Other (Bradycardic which she says is chronic, Regular, 3 out of 6 decrescendo systolic murmur) - Abdomen Abdomen: Normal bowel sounds, Soft, Other (Left-sided ostomy, nontender abdomen) - Back Back: No CVA TTP, No spinal TTP - Derm Derm: Normal color, Warm and dry - Extremities Extremities: No edema, No calf tenderness / cord - Neuro Neuro: Alert and oriented X 3, Normal speech - Psych Psych: Normal mood, Normal affect Results - Vitals Vitals: Vital Signs - 24 hr 10/29/21 10/29/21 15:40 16:11 Temperature 36.8 C Heart Rate 48 L 44 L Respiratory 16 14 Rate Blood Pressure 202/39 H 185/50 H O2 Saturation 99 100 Oxygen O2 Source Room air - EKG (time done) 1640 Rate: Rate (enter#) (41) Rhythm: Sinus bradycardia [place]: Normal Intervals: Normal HI QRS: Normal Ischemia: Normal ST segments Computer interpretation: Disagree with computer - Labs Labs: Microbiology 10/29/21 16:00 Occult Blood - Final Stool Laboratory Tests 10/29/21 10/29/21 16:03 16:03 WBC 11.0 H RBC 3.65 L Hgb 11.5 L Hct 34.8 L MCV 95.3 MCH 31.5 H MCHC 33.0 RDW 15.3 H Plt Count 344 MPV 9.7 Neut # (Auto) 5.6 Lymph # (Auto) 4.0 H Milam # (Auto) 1.0 Eos # (Auto) 0.4 Baso # (Auto) 0.1 Absolute Nucleated RBC 0.00 Nucleated RBC % 0.0 Sodium 139 Potassium 4.4 Chloride 106 Carbon Dioxide 23 Anion Gap 10.0 BUN 36 H Creatinine 1.4 H Estimated GFR (MDRD) 35 L Glucose 84 Calcium 9.4 Total Bilirubin 0.5 AST 41 ALT 50 Alkaline Phosphatase 94 Total Protein 7.3 Albumin 4.5 Globulin 2.8 Albumin/Globulin Ratio 1.6 PD MEDICAL DECISION MAKING - ED course ED course: This is an 86-year-old woman who is on a DOAC. She has an extensive history of abdominal surgeries and coronary disease and recalcitrant hypertension, but no history of GI bleeding or ulcers. She presents with painless melena of a days duration with nausea but no vomiting. She is guaiac positive. Her hemodynamics are solid from perspective of a hemorrhage standpoint, she is bradycardic, but she says that is her baseline. She is hypertensive with a wide pulse pressure and a murmur. Presume some element of valvular disease as well. She was given IV Protonix. Hemoglobin was 11-1/2 which was actually above the last level on the chart which was 11.0. I discussed the case by phone with Dr. Jean Hartley our on-call surgeon. He notes that the OR is closed over the weekend and there is no on-call surgeon over the weekend. Because of that I queried if the patient should be transferred as opposed to admitted here. We discussed it for a while and eventually he conceded that given her last oral intake at 1 PM, he could do an EGD tonight around 9 PM after consultation. Spoke with Dr. Anderson for admission at 4:53 PM. Departure - Departure Disposition: ED Place in Observation Clinical Impression: Upper GI bleed, Adequate anticoagulation on anticoagulant therapy, Sinus bradycardia, Hypertension Condition: Stable
[2021-10-29 16:16] LABS: BASOPHILS # (AUTO) 0.1 10^3/uL (0.0-0.1); BASOPHILS % (AUTO) 0.8 %; EOSINOPHILS # (AUTO) 0.4 10^3/uL (0.0-0.7); EOSINOPHILS % (AUTO) 3.3 %; HCT - HEMATOCRIT 34.8 % (37.0-47.0); HGB - HEMOGLOBIN 11.5 g/dL (12.0-16.0); LYMPHOCYTES % (AUTO) 36.1 %; MEAN CORPUSCULAR HEMOGLOBIN 31.5 pg (27.0-31.0); MEAN CORPUSCULAR VOLUME 95.3 fL (81.0-99.0); MEAN PLATELET VOLUME 9.7 fL (7.9-10.8); MONOCYTES % (AUTO) 8.8 %; NEUTROPHILS # (AUTO) 5.6 10^3/uL (1.5-6.6); NEUTROPHILS % (AUTO) 50.5 %; PLT - PLATELET COUNT 344 10^3/uL (130-450); RED BLOOD COUNT 3.65 10^6/uL (4.20-5.40); RED CELL DISTRIBUTION WIDTH 15.3 % (12.0-15.0)
[2021-10-29 16:28] LABS: ALBUMIN 4.5 g/dL (3.2-5.5); ALBUMIN/GLOBULIN RATIO 1.6 (1.0-2.2); BILIRUBIN,TOTAL 0.5 mg/dL (0.2-1.0); CALCIUM 9.4 mg/dL (8.5-10.3); CREATININE 1.4 mg/dL (0.4-1.0); POTASSIUM 4.4 mmol/L (3.5-5.0); TOTAL PROTEIN 7.3 g/dL (6.7-8.2)
--- NOTE | 2021-10-29 16:55 | HISTORY & PHYSICAL EXAMINATION ---
Chief Complaint - Chief Complaint Chief Complaint: melena for 2 days History of Present Illness - Admitted From Admitted From:: home - History Obtained From Records Reviewed: [facility] History obtained from: Dr. Cedeno Exam Limitations: none - History of Present Illness HPI Comment/Other: Pleasant 86-year-old female who has had multiple medical issues due to rectal cancer that has resulted in a colostomy, pericolostomy hernia treated with mesh, repeat hernia and abdominal pain December 2018, and a small bowel obstruction due to diverticulitis in December 2018. She has chronic atrial fibrillation for which she takes Eliquis. She noted black stools yesterday and today. She denies nausea, vomiting, abdominal pain. Appetite has been the same. In the emergency room blood pressure was quite elevated at 202/39. She is come down to 185/50. Heart rate has been 48-44 and she states that is her normal pulse. She is a pleasant elderly female with negative cardiopulmonary exam Other than murmur and A benign abdominal exam according to the ER doctor. She has been "rock steady" with her hemodynamics. Hemoglobin is 11.5 and stable from her December 2018 hemoglobin which was 11. Rectal confirms melanotic stool that is fecal occult blood positive. General surgery was consulted. He would like her observed with our service and he will see her tonight for a EGD. If she remains stable hopefully she will to stay in observation overnight and then be discharged. History - Past Medical History Cardiovascular: reports: Congestive heart failure (Grade I diastolic), Hypertension, High cholesterol, Coronary artery disease, Peripheral Vascular Disease (Chronic 100% ELISA, 50-89% LICA), [place] (1991 followed by CABG), Murmur (Mild to Mod MR on ECHO), Arrhythmia (LBBB and chronic bradycardia) Respiratory: reports: None Neuro: reports: CVA (1981 w good recovery), TIA, Other (occluded right carotid artery) Endocrine/Autoimmune: reports: HyPOthyroidism GI: reports: None : reports: Incontinence, Other (cystocele w pessaries in place, mult pelvic surgeries, sq metaplasia of bladder) HEENT: reports: Glaucoma (narrow angle) Musculoskeletal: reports: Osteoarthritis MRSA Hx?: No - Past Surgical History General: reports: Cholecystectomy (1989), Bowel surgery, Hiatal hernia repair /SNAKER: reports: Tubal ligation, Hysterectomy (2000), Oophrectomy, Other (breast ca w lumpectomy and XRT) Cardiovascular: reports: CABG HEENT: reports: Tonsil/Adenoidectomy (1946) Meds/Allgy - Home Medications Home Medications: Ambulatory Orders Medication Instructions Recorded Confirmed Levothyroxine [Synthroid] 75 mcg PO DAILY 01/23/13 12/28/18 Lisinopril [Zestril] 40 mg PO BID 01/23/13 12/28/18 Aspirin 81 mg PO DAILY 03/23/15 12/28/18 Amlodipine Besylate 5 mg PO BID 12/28/18 12/28/18 Doxazosin [Cardura] 4 mg PO BID 12/28/18 12/28/18 Metoprolol Recio/Hydrochlorothiaz 25 mg PO DAILY 12/28/18 12/28/18 [Metoprolol ER-Hctz 25-12.5 mg] Ciprofloxacin HCl [Cipro] 250 mg PO BID 5 Days #10 tablet 06/03/19 Oxybutynin Chloride [Ditropan Xl] 5 mg PO 06/03/19 Phenazopyridine HCl 200 mg PO TID PRN #20 tablet 06/03/19 Amiodarone [Pacerone] 100 mg PO DAILY 10/29/21 10/29/21 Apixaban [Eliquis] 2.5 mg PO BID 10/29/21 10/29/21 Atorvastatin Calcium 40 mg PO DAILY 10/29/21 10/29/21 Spironolactone [Aldactone] 12.5 mg PO DAILY 10/29/21 10/29/21 hydroCHLOROthiazide [Hydrodiuril] 12.5 mg PO DAILY 10/29/21 10/29/21 - Allergies Allergies/Adverse Reactions: Allergies Allergy/AdvReac Type Severity Reaction Status Date / Time azithromycin Allergy Unknown unknown Verified 10/29/21 15:46 dicloxacillin [Dicloxacillin] Allergy Unknown unknown Verified 10/29/21 15:46 Prior Level of Functionality: InDependent with activities of daily living. Exam - Vital Signs Reviewed Vital Signs: Yes Vital Signs: Vital Signs x48h Temp Pulse Resp BP Pulse Ox 10/29/21 16:11 44 L 14 185/50 H 100 10/29/21 15:40 36.8 C 48 L 16 202/39 H 99 Conclusion/Plan - Problem List (1) Melena Conclusion/Plan: In a patient has had a history of colorectal cancer. Rectal exam was negative. No fresh bleeding. Hemoglobin is stable. Blood pressure is stable. Plan: Observation status EGD tonight Proton pump inhibitor tonight Serial hemoglobin every 6 hours - Lab Results Lab results reviewed: Yes Kailash Bones: 10/29/21 16:03 10/29/21 16:03 Core Measures - Anticipated LOS I expect patient to be DC'd or transferred within 96 hours.: Yes - DVT/VTE - Prophylaxis VTE/DVT Device ordered at admit?: Yes
[2021-10-29] MEDS ORDERED: ONDANSETRON 4 MG/2 ML VIAL IVP PRN (18:55)
[2021-10-29] MEDS ORDERED: ONDANSETRON ODT 4 MG TABLET TL PRN (18:55)
[2021-10-29] MEDS ORDERED: SODIUM CHLORIDE FLUSH 0.9% 10 ML SYRINGE IVP PRN (18:55)
[2021-10-29] MEDS ORDERED: HYDROmorphone 0.5 MG/0.5 ML SYRINGE IVP PRN (18:55)
[2021-10-29] MEDS ORDERED: SODIUM CHLORIDE 0.9% 1,000 ML IV SCH (19:00)
--- NOTE | 2021-10-29 20:15 | HISTORY & PHYSICAL EXAMINATION ---
Chief Complaint - Chief Complaint Chief Complaint: Dark stools History of Present Illness - Admitted From Admitted From:: Home - History Obtained From Records Reviewed: [facility] History obtained from: Patient, Hospitalist, EMR - History of Present Illness HPI Comment/Other: This is a 86-year-old female with a past medical history significant for hyp ertension, history of colon cancer in remission status post ostomy, hypothyroidism, paroxysmal atrial relation who presents today complaining of dark stools for the past day. She states she noticed some blood in her stool and that the stool in her ostomy was quite dark. She was concerned about ble eding given she is on Eliquis and takes baby aspirin. She has been on Eliquis for 3 to 4 months which she can recall. She believes it may be due to carotid artery disease although she admits to having a tribulation and what sound like a history of cardioversion. She denies any NSAID use as well as alcohol use. She reports no fever, chills, nausea, vomiting. She has no abdominal pain. She bel ieves she had an endoscopy about 6 months ago prior to starting anticoagulation and it did not reveal anything significant. In the emergency department, her stool was noted to be positive for occult blood. Her hemoglobin is stable 11.5. If the emergency department physician spoke with general surgery and they agreed to perform an endoscopy this evening given do not have surgical services available over the weekend. We discussed goals of care and she would like to be a full code. History - Past Medical History Cardiovascular: reports: Congestive heart failure (Grade I diastolic), Hypertension, High cholesterol, Coronary artery disease, Peripheral Vascular Disease (Chronic 100% ELISA, 50-89% LICA), [place] (1991 followed by CABG), Atrial fibrillation, Murmur (Mild to Mod MR on ECHO) Respiratory: reports: None Neuro: reports: CVA (1981 with no residual deficits), TIA Endocrine/Autoimmune: reports: HyPOthyroidism GI: reports: None, Other (History of colon cancer in remission.) : reports: Incontinence, Other (cystocele w pessaries in place, mult pelvic surgeries, sq metaplasia of bladder) HEENT: reports: Glaucoma (narrow angle) Musculoskeletal: reports: Osteoarthritis MRSA Hx?: No - Past Surgical History General: reports: Cholecystectomy (1989), Bowel surgery, Hiatal hernia repair, Other (Ostomy.) /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 Social History Notes: She lives at home with her . She is a non-smoker and does not drink alcohol. - POLST Patient has POLST: No Meds/Allgy - Home Medications Home Medications: Ambulatory Orders Medication Instructions Recorded Confirmed Levothyroxine [Synthroid] 75 mcg PO QDAC 01/23/13 10/29/21 Lisinopril [Zestril] 40 mg PO DAILY 01/23/13 10/29/21 Aspirin 81 mg PO DAILY 03/23/15 12/28/18 Amlodipine Besylate 5 mg PO BID 12/28/18 12/28/18 Doxazosin [Cardura] 4 mg PO BID 12/28/18 12/28/18 Metoprolol Recio/Hydrochlorothiaz 25 mg PO DAILY 12/28/18 12/28/18 [Metoprolol ER-Hctz 25-12.5 mg] Ciprofloxacin HCl [Cipro] 250 mg PO BID 5 Days #10 tablet 06/03/19 Oxybutynin Chloride [Ditropan Xl] 5 mg PO 06/03/19 Phenazopyridine HCl 200 mg PO TID PRN #20 tablet 06/03/19 Amiodarone [Pacerone] 100 mg PO DAILY 10/29/21 10/29/21 Apixaban [Eliquis] 2.5 mg PO BID 10/29/21 10/29/21 Atorvastatin Calcium 40 mg PO DAILY 10/29/21 10/29/21 Spironolactone [Aldactone] 12.5 mg PO DAILY 10/29/21 10/29/21 hydroCHLOROthiazide [Hydrodiuril] 12.5 mg PO DAILY 10/29/21 10/29/21 - Allergies Allergies/Adverse Reactions: Allergies Allergy/AdvReac Type Severity Reaction Status Date / Time azithromycin Allergy Unknown unknown Verified 10/29/21 15:46 dicloxacillin [Dicloxacillin] Allergy Unknown unknown Verified 10/29/21 15:46 Review of Systems - Constitutional Constitutional: denies: Fatigue, Fever, Chills - Ears, Nose & Throat Ears, Nose & Throat: denies: Nasal discharge, Nasal congestion - Cardiovascular Cariovascular: denies: Chest pain, Exertional dyspnea, Decr. exercise tolerance - Respiratory Respiratory: denies: Cough, SOB at rest, SOB with exertion - Gastrointestinal Gastrointestinal: reports: Black stools, Bloody stools. denies: Abdominal pain, Abdominal distention, Nausea, Vomiting, Reflux/heartburn - Genitourinary Genitourinary: denies: Dysuria, Frequency, Urgency, Hematuria - Musculoskeletal Musculoskeletal: reports: Joint pain - Integumentary Integumentary: denies: Rash - Neurological Neurological: denies: General weakness, Focal weakness - Hematologic/Lymphatic Hematologic/Lymphatic: denies: Bleeding tendencies - All Other Systems All Other Systems: reports: Reviewed and negative Prior Level of Functionality: She is independent with her ADL's. Exam - Vital Signs Reviewed Vital Signs: Yes Vital Signs: Vital Signs x48h Temp Pulse Resp BP Pulse Ox 10/29/21 18:00 45 L 20 187/53 H 99 10/29/21 16:11 44 L 14 185/50 H 100 10/29/21 15:40 36.8 C 48 L 16 202/39 H 99 - Physical Exam General Appearance: positive: No acute distress, Alert Respiratory: positive: No respiratory distress. negative: Wheezes, Rales Cardiovascular: positive: Regular rate & rhythm, Bradycardia, Systolic murmur. negative: Irregularly irregular, Tachycardia Abdomen: positive: Non-tender, No distention, Other (Ostomy in place.). negative: Tenderness Skin: positive: Warm, Dry Extremities: positive: Pedal edema (+1 edema in left lower extremity.) Neurologic/Psychiatric: positive: Motor nml. negative: Disoriented to person, Disoriented to place, Disoriented to time Conclusion/Plan - Problem List (1) Upper GI bleed Conclusion/Plan: Conccern is for an upper GI bleed given the melena. Her hemoglobin appears to be stable at 11.5. Stool is positive for occult blood. We will place her in observation for endoscopy this evening given there is no general surgery or OR time available over the weekend. Start her on PPI twice daily. Hold Eliquis an d aspirin. Repeat hemoglobin this afternoon and in the morning. (2) Hypertension Conclusion/Plan: She is quite hypertensive with systolics in the 180s. She is on multiple antihypertensives at home which we will resume home. We will give the doses of her evening amlodipine and doxazosin tonight. (3) Paroxysmal atrial fibrillation Conclusion/Plan: She is currently bradycardic and in a sinus rhythm. We will continue her home amiodarone. Hold the Eliquis given the melena. (4) Sinus bradycardia Conclusion/Plan: She is currently bradycardic but in a sinus rhythm. She has a history of proximal atrial fibrillation and is on amiodarone and metoprolol. We will continue the amiodarone. We will confirm with pharmacy if she is on metoprolol or not as her most recent fills do not show a prescription for metoprolol. If she is on it and we will hold it given her rates are in the 40s. (5) Adequate anticoagulation on anticoagulant therapy Conclusion/Plan: We will hold her Eliquis given the melena. (6) History of colon cancer Conclusion/Plan: This is a remote diagnosis and appears to be in remission. (7) Hypothyroidism Conclusion/Plan: Continue Synthroid. - Lab Results Lab results reviewed: Yes Kailash Bones: 10/30/21 04:11 10/30/21 04:11 Core Measures - Anticipated LOS I expect patient to be DC'd or transferred within 96 hours.: Yes - Issues Hospital Issues and Management Plan: 86-year-old female presents with melena with concerns for an upper GI bleed. She be placed in observation for monitoring of her hemoglobin and EGD. - DVT/VTE - Prophylaxis VTE/DVT Device ordered at admit?: Yes VTE/DVT Prophylaxis med ordered at admit?: No
[2021-10-29] MEDS ORDERED: ATORVASTATIN 40 MG TABLET PO SCH (21:00)
--- NOTE | 2021-10-29 21:17 | ANESTHESIA ---
Pre-Anesthesia VS, & Labs - Diagnosis melena - Procedure EGD Vital Signs: Temp Pulse Resp BP Pulse Ox 36.8 C 45 L 20 187/53 H 99 10/29/21 15:40 10/29/21 18:00 10/29/21 18:00 10/29/21 18:00 10/29/21 18:00 Height: 5 ft 3 in Weight (kg): 54 kg Body Mass Index: 21.0 BMI Classification: Healthy weight - NPO >8 hours, Other (1300) - Is Patient ?: No - Lab Results Current Lab Results: Laboratory Tests 10/29/21 16:03: Blood Type A POSITIVE, Antibody Screen NEGATIVE 10/29/21 16:03: Sodium 139, Potassium 4.4, Chloride 106, Carbon Dioxide 23, Anion Gap 10.0, BUN 36 H, Creatinine 1.4 H, Estimated GFR (MDRD) 35 L, Glucose 84, Calcium 9.4, Total Bilirubin 0.5, AST 41, ALT 50, Alkaline Phosphatase 94, Total Protein 7.3, Albumin 4.5, Globulin 2.8, Albumin/Globulin Ratio 1.6 10/29/21 16:03: WBC 11.0 H, RBC 3.65 L, Hgb 11.5 L, Hct 34.8 L, MCV 95.3, MCH 31.5 H, MCHC 33.0, RDW 15.3 H, Plt Count 344, MPV 9.7, Neut # (Auto) 5.6, Lymph # (Auto) 4.0 H, Mcdonough # (Auto) 1.0, Eos # (Auto) 0.4, Baso # (Auto) 0.1, Absolute Nucleated RBC 0.00, Nucleated RBC % 0.0 Fish Bones: 10/29/21 16:03 10/29/21 16:03 Home Medications and Allergies Home Medications: Ambulatory Orders Amiodarone [Pacerone] 100 mg PO DAILY 10/29/21 Apixaban [Eliquis] 2.5 mg PO BID 10/29/21 Atorvastatin Calcium 40 mg PO DAILY 10/29/21 Spironolactone [Aldactone] 12.5 mg PO DAILY 10/29/21 hydroCHLOROthiazide [Hydrodiuril] 12.5 mg PO DAILY 10/29/21 Active Medications Amiodarone HCl (Amiodarone 200 Mg Tablet) 100 mg PO DAILY [facility] Amlodipine Besylate (Amlodipine 5 Mg Tablet) 5 mg PO BID [facility] Atorvastatin Calcium (Atorvastatin 40 Mg Tablet) 40 mg PO HS [facility] Doxazosin Mesylate (Doxazosin 4 Mg Tablet) 4 mg PO BID [facility] Hydrochlorothiazide (Hydrochlorothiazide 12.5 Mg Capsule) 12.5 mg PO DAILY [facility] Hydromorphone HCl (Hydromorphone 0.5 Mg/0.5 Ml Syringe) 0.5 mg IVP Q2H PRN PRN Reason: Pain 8 to 10 Sodium Chloride (Normal Saline 0.9%) 1,000 mls @ 100 mls/hr IV .Q10H [facility] Lisinopril (Lisinopril 20 Mg Tablet) 40 mg PO DAILY [facility] Ondansetron HCl (Ondansetron Odt 4 Mg Tablet) 4 mg TL Q6HR PRN PRN Reason: Nausea / Vomiting Ondansetron HCl (Ondansetron 4 Mg/2 Ml Vial) 4 mg IVP Q6HR PRN PRN Reason: Nausea / Vomiting Pantoprazole Sodium (Pantoprazole 40 Mg Vial) 40 mg IVP QDAC [facility] Sodium Chloride (Sodium Chloride Flush 0.9% 10 Ml Syringe) 10 ml IVP PRN PRN PRN Reason: NEEDED PER PROVIDER ORDERS Sodium Chloride (Sodium Chloride Flush 0.9% 10 Ml Syringe) 10 ml IVP 0100,0900,1700 [facility] Spironolactone (Spironolactone 25 Mg Tablet) 12.5 mg PO DAILY [facility] Levothyroxine [Synthroid] 75 mcg PO QDAC 01/23/13 Lisinopril [Zestril] 40 mg PO DAILY 01/23/13 Aspirin 81 mg PO DAILY 03/23/15 Amlodipine Besylate 5 mg PO BID 12/28/18 Doxazosin [Cardura] 4 mg PO BID 12/28/18 Metoprolol Recio/Hydrochlorothiaz [Metoprolol ER-Hctz 25-12.5 mg] 25 mg PO DAILY 12/28/18 Oxybutynin Chloride [Ditropan Xl] 5 mg PO 06/03/19 Amiodarone [Pacerone] 100 mg PO DAILY 10/29/21 Apixaban [Eliquis] 2.5 mg PO BID 10/29/21 Atorvastatin Calcium 40 mg PO DAILY 10/29/21 Spironolactone [Aldactone] 12.5 mg PO DAILY 10/29/21 hydroCHLOROthiazide [Hydrodiuril] 12.5 mg PO DAILY 10/29/21 Allergies/Adverse Reactions: Allergies Allergy/AdvReac Type Severity Reaction Status Date / Time azithromycin Allergy Unknown unknown Verified 10/29/21 15:46 dicloxacillin [Dicloxacillin] Allergy Unknown unknown Verified 10/29/21 15:46 Anes History & Medical History - Anesthetic History Anesthesia Complications: reports: No previous complications Family history of Anesthesia Complications: Denies Family history of Malignant Hyperthermia: Denies - Medical History Cardiovascular: reports: Congestive heart failure (Grade I diastolic), Hypertension, High cholesterol, Coronary artery disease, Peripheral Vascular Disease (Chronic 100% ELISA, 50-89% LICA), [place] (1991 followed by CABG), Atrial fibrillation, Murmur (Mild to Mod MR on ECHO) Pulmonary: reports: None Gastrointestinal: reports: None, Other (History of colon cancer in remission.) Urinary: reports: Incontinence, Other (cystocele w pessaries in place, mult pelvic surgeries, sq metaplasia of bladder) Neuro: reports: CVA (1981 with no residual deficits), TIA Musculoskeletal: reports: Osteoarthritis Endocrine/Autoimmune: reports: HyPOthyroidism Blood Disorders: reports: None Smoking Status: Never smoker - Surgical History General: reports: Cholecystectomy (1989), Bowel surgery, Hiatal hernia repair Eyes Ears Nose Throat (EENT): reports: Tonsil/Adenoidectomy (1946) Cardiothoracic: reports: CABG Gynecologic: reports: Tubal ligation, Hysterectomy (2000), Oophrectomy, Other (breast ca w lumpectomy and XRT) Exam General: Alert, Oriented x3, Cooperative Dental: WNL Mouth Openin Fingerbreadth Mallampati classification: II Thyromental Distance: 4-6 cm Respiratory: Lungs clear Cardiovascular: Other Plan Anesthesia Type: Total IV Consent for Procedure(s) Verified and Reviewed: Yes Code Status: Attempt Resuscitation ASA classification: 3-Severe systemic disease Is this case an emergency?: Yes
--- NOTE | 2021-10-29 21:20 | CONSULTATION NOTE ---
Referring Provider Consult Date: 10/29/21 Chief Complaint - Chief Complaint Chief Complaint: dark stool History of Present Illness - Admitted From Admitted From:: ed - History Obtained From Records Reviewed: yes History obtained from: pt Exam Limitations: none - History of Present Illness HPI Comment/Other: Noticed dark stool per stoma bag and came to the ED. Concern for upper gi b leed. She is on anticoagulation. Vitals have been stable. She has history of Small bowel obstruction and prior permanent colostomy for rectal cancer. She feels well currently. She denies gastric pain, pain on swallowing, trouble swallowing. History - Past Medical History Cardiovascular: reports: Congestive heart failure (Grade I diastolic), Hypertension, High cholesterol, Coronary artery disease, Peripheral Vascular Disease (Chronic 100% ELISA, 50-89% LICA), [place] (1991 followed by CABG), Atrial fibrillation, Murmur (Mild to Mod MR on ECHO) Respiratory: reports: None Neuro: reports: CVA (1981 with no residual deficits), TIA Endocrine/Autoimmune: reports: HyPOthyroidism GI: reports: None, Other (History of colon cancer in remission.) : reports: Incontinence, Other (cystocele w pessaries in place, mult pelvic surgeries, sq metaplasia of bladder) HEENT: reports: Glaucoma (narrow angle) Psych: reports: None Musculoskeletal: reports: Osteoarthritis MRSA Hx?: No - Past Surgical History General: reports: Cholecystectomy (1989), Bowel surgery, Hiatal hernia repair /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 Social History Notes: She lives at home with her . She is a non-smoker and does not drink alcohol. - POLST Patient has POLST: No Meds/Allgy - Home Medications Home Medications: Ambulatory Orders Medication Instructions Recorded Confirmed Levothyroxine [Synthroid] 75 mcg PO QDAC 01/23/13 10/29/21 Lisinopril [Zestril] 40 mg PO DAILY 01/23/13 10/29/21 Aspirin 81 mg PO DAILY 03/23/15 12/28/18 Amlodipine Besylate 5 mg PO BID 12/28/18 12/28/18 Doxazosin [Cardura] 4 mg PO BID 12/28/18 12/28/18 Metoprolol Recio/Hydrochlorothiaz 25 mg PO DAILY 12/28/18 12/28/18 [Metoprolol ER-Hctz 25-12.5 mg] Ciprofloxacin HCl [Cipro] 250 mg PO BID 5 Days #10 tablet 06/03/19 Oxybutynin Chloride [Ditropan Xl] 5 mg PO 06/03/19 Phenazopyridine HCl 200 mg PO TID PRN #20 tablet 06/03/19 Amiodarone [Pacerone] 100 mg PO DAILY 10/29/21 10/29/21 Apixaban [Eliquis] 2.5 mg PO BID 10/29/21 10/29/21 Atorvastatin Calcium 40 mg PO DAILY 10/29/21 10/29/21 Spironolactone [Aldactone] 12.5 mg PO DAILY 10/29/21 10/29/21 hydroCHLOROthiazide [Hydrodiuril] 12.5 mg PO DAILY 10/29/21 10/29/21 - Allergies Allergies/Adverse Reactions: Allergies Allergy/AdvReac Type Severity Reaction Status Date / Time azithromycin Allergy Unknown unknown Verified 10/29/21 15:46 dicloxacillin [Dicloxacillin] Allergy Unknown unknown Verified 10/29/21 15:46 Review of Systems - Other Findings Other Findings: 10 pt ros as above otherwise unremarkable Exam - Vital Signs Reviewed Vital Signs: Yes Vital Signs: Vital Signs x48h Temp Pulse Resp BP Pulse Ox 10/29/21 18:00 45 L 20 187/53 H 99 10/29/21 16:11 44 L 14 185/50 H 100 10/29/21 15:40 36.8 C 48 L 16 202/39 H 99 - Physical Exam General Appearance: positive: No acute distress, Alert Eyes Bilateral: positive: PERRL, EOMI, No scleral icterus ENT: positive: Pharynx nml, No signs of dehydration Neck: positive: No JVD, Trachea midline Respiratory: positive: No respiratory distress, Breath sounds nml Cardiovascular: positive: Irregularly irregular, Bradycardia Abdomen: positive: Non-tender, No distention Neurologic/Psychiatric: positive: Oriented x3 Conclusion/Plan - Lab Results Lab results reviewed: Yes Fish Bones: 10/29/21 16:03 10/29/21 16:03 - Other Other Results/Comments: concern for upper gi bleed. plan EGD. parq held and consent obtained
[2021-10-29] MEDS ORDERED: PROPOFOL 200 MG/20 ML VIAL IVP ONE (21:22)
[2021-10-29] MEDS ORDERED: LIDOCAINE-MPF 2% 5 ML VIAL ONE (21:23)
[2021-10-29 22:03] LABS: HCT - HEMATOCRIT 30.6 % (37.0-47.0); HGB - HEMOGLOBIN 10.6 g/dL (12.0-16.0); MEAN CORPUSCULAR HEMOGLOBIN 32.7 pg (27.0-31.0); MEAN CORPUSCULAR HGB CONC 34.6 g/dL (32.0-36.0); MEAN CORPUSCULAR VOLUME 94.4 fL (81.0-99.0); MEAN PLATELET VOLUME 9.7 fL (7.9-10.8); RED BLOOD COUNT 3.24 10^6/uL (4.20-5.40); RED CELL DISTRIBUTION WIDTH 14.9 % (12.0-15.0); WHITE BLOOD COUNT 10.4 x10^3/uL (4.8-10.8)
--- NOTE | 2021-10-29 22:03 | OPERATIVE REPORT ---
Operative Report - General Admit Date: 10/29/21 Procedure Date: 10/29/21 Planned Procedure: egd Pre-Op Diagnosis: melana and concern for upper gi bleed Procedure Performed: egd Post Op Diagnosis: large paraesophageal hernia with assoc superficial erosions and scant blood - Procedure Note Anesthesia Technique: MAC Pathology: none Estimated Blood Loss (mL): 0 Indications: as above Findings: no cancer or ulcer. normal esophagus Complications: none
[2021-10-29] MEDS: amLODIPine 5 MG TABLET PO SCH (22:16)
[2021-10-29] MEDS: DOXAZOSIN 4 MG TABLET PO SCH (22:16)
[2021-10-30] MEDS: SODIUM CHLORIDE FLUSH 0.9% 10 ML SYRINGE IVP SCH ×2 (00:30→10:35)
[2021-10-30 04:30] LABS: HCT - HEMATOCRIT 31.2 % (37.0-47.0); HGB - HEMOGLOBIN 10.6 g/dL (12.0-16.0); MEAN CORPUSCULAR VOLUME 94.3 fL (81.0-99.0); MEAN PLATELET VOLUME 9.8 fL (7.9-10.8); RED BLOOD COUNT 3.31 10^6/uL (4.20-5.40); RED CELL DISTRIBUTION WIDTH 15.1 % (12.0-15.0); WHITE BLOOD COUNT 17.1 x10^3/uL (4.8-10.8)
[2021-10-30 04:40] LABS: CALCIUM 9.4 mg/dL (8.5-10.3); CREATININE 1.2 mg/dL (0.4-1.0); POTASSIUM 4.3 mmol/L (3.5-5.0)
[2021-10-30] MEDS ORDERED: PANTOPRAZOLE 40 MG VIAL IVP SCH (07:00)
[2021-10-30] MEDS ORDERED: PANTOPRAZOLE 40 MG TABLET PO SCH (08:00)
[2021-10-30] MEDS ORDERED: AMIODARONE 200 MG TABLET PO SCH (09:00)
[2021-10-30] MEDS ORDERED: SPIRONOLACTONE 25 MG TABLET PO SCH (09:00)
[2021-10-30] MEDS ORDERED: hydroCHLOROthiazide 12.5 MG CAPSULE PO SCH (09:00)
[2021-10-30] MEDS ORDERED: lisinopriL 20 MG TABLET PO SCH (09:00)
--- NOTE | 2021-10-30 09:02 | PHARMACY PROGRESS NOTE ---
- Best Possible Medication History Admit Date and Time: 10/29/21 1855 Processed by: Pharmacy Medication History completed: Yes Patient Interview: Completed Secondary Source(s): Written medication list, Spouse/Significant other, Pharmacy records, Insurance records As the person ultimately responsible for medication therapy, providers are able to order a medication from an existing home medication list in [facility] via the "Reconcile Routine" prior to Confirmation of that medication by manager sales support. Such practice is discouraged except when the physician, in their clinical judgment, deems that a medical need exists for a medication without regard to previous use.
--- NOTE | 2021-10-30 09:20 | DISCHARGE SUMMARY ---
"Discharge Summary Admit Date: 10/29/21 Discharge Date: 10/30/21 Discharging Provider: Pattie Anderson MD Primary Care Provider: Lobo Guaman MD Code Status: Attempt Resuscitation Condition at Discharge: Stable Discharge Disposition: 01 Home, Self Care - DIAGNOSES Discharge Diagnoses with Status of Each Condition: 1. Upper GI bleed 2. Hypertension 3. Paroxysmal atrial fibrillation 4. Sinus bradycardia 5. Adequate anticoagulation on anticoagulant therapy 6. History of colon cancer 7. Hypothyroidism - HPI History of Present Illness: This is a 86-year-old female with a past medical history significant for hypertension, history of colon cancer in remission status post ostomy, hypothyroidism, paroxysmal atrial relation who presents today complaining of dark stools for the past day. She states she noticed some blood in her stool and that the stool in her ostomy was quite dark. She was concerned about bleeding given she is on Eliquis and takes baby aspirin. She has been on Eliquis for 3 to 4 months which she can recall. She believes it may be due to carotid artery disease although she admits to having a tribulation and what sound like a history of cardioversion. She denies any NSAID use as well as alcohol use. She reports no fever, chills, nausea, vomiting. She has no abdominal pain. She believes she had an endoscopy about 6 months ago prior to starting anticoagulation and it did not reveal anything significant. In the emergency department, her stool was noted to be positive for occult blood. Her hemoglobin is stable 11.5. If the emergency department physician spoke with general surgery and they agreed to perform an endoscopy this evening given do not have surgical services available over the weekend. We discussed goals of care and she would like to be a full code. - Past Medical History Cardiovascular: reports: Congestive heart failure (Grade I diastolic), Hypertension, High cholesterol, Coronary artery disease, Peripheral Vascular Disease (Chronic 100% ELISA, 50-89% LICA), [place] (1991 followed by CABG), Atrial fibrillation, Murmur (Mild to Mod MR on ECHO) Respiratory: reports: None Neuro: reports: CVA (1981 with no residual deficits), TIA Endocrine/Autoimmune: reports: HyPOthyroidism GI: reports: None, Other (History of colon cancer in remission.) : reports: Incontinence, Other (cystocele w pessaries in place, mult pelvic surgeries, sq metaplasia of bladder) HEENT: reports: Glaucoma (narrow angle) Musculoskeletal: reports: Osteoarthritis MRSA Hx?: No - Past Surgical History General: reports: Cholecystectomy (1989), Bowel surgery, Hiatal hernia repair, O ther (Ostomy.) /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 Hartley Procedures: Esophagogastroduodenoscopy showing normal esophagus and duodenum. No ulcers masses or cancer. Very large paraesophageal hernia with few associated superficial erosions and scant blood present. No active bleeding and no significant amount of blood in the stomach. - HOSPITAL COURSE Hospital Course: She underwent an EGD with Dr. Hartley and there was no true pathology found or source of bleeding. She did not require transfusion. She remained hemodynamically stable. Hemoglobin started 11.5 and stayed at approximately 10 from the time of discharge. As such she was discharged with follow-up to her primary care provider to possibly need further studies such as a another scope or video endoscopy. Temperature is 37.2. Heart rate 58. Blood pressure 150/50. Respirations 18. 100% on room air. She was an alert elderly female who was able to get out of the bed and ambulate to the bathroom. She was occasionally incontinent of urine. Lungs were clear. Regular rate and rhythm. Alert and oriented to person place and time. No complaints of dizziness or fatigue. - ALLERGIES Allergies/Adverse Reactions: Allergies Allergy/AdvReac Type Severity Reaction Status Date / Time azithromycin Allergy Unknown unknown Verified 10/29/21 15:46 dicloxacillin [Dicloxacillin] Allergy Unknown unknown Verified 10/29/21 15:46 - MEDICATIONS Home Medications: Ambulatory Orders Medication Instructions Recorded Confirmed Levothyroxine [Synthroid] 75 mcg PO QDAC 01/23/13 10/29/21 Lisinopril [Zestril] 40 mg PO DAILY 01/23/13 10/29/21 Amlodipine Besylate 5 mg PO DAILY 12/28/18 10/30/21 Amiodarone [Pacerone] 100 mg PO DAILY 10/29/21 10/29/21 Apixaban [Eliquis] 2.5 mg PO BID 10/29/21 10/29/21 Atorvastatin Calcium 40 mg PO DAILY 10/29/21 10/29/21 hydroCHLOROthiazide [Hydrodiuril] 12.5 mg PO DAILY 10/29/21 10/29/21 Cranberry Fruit Extract [Cranberry] 500 mg PO BID 10/30/21 10/30/21 Metoprolol Succinate [Toprol Xl] 12.5 mg PO DAILY 10/30/21 10/30/21 - LABS Result Diagrams: 10/30/21 10:13 10/30/21 04:11"
--- NOTE | 2021-10-30 09:27 | Discharge Plan ---
Discharge Plan Problem Reviewed?: Yes Disposition: Home, Self Care Condition: Stable Diet: Regular Activity Restrictions: Activity as Tolerated Shower Restrictions: No Driving Restrictions: No Health Concerns: You came to the emergency room because you are having black stools in her ostomy bag. You do have a history of colon cancer with an ostomy. You are anemic but not terribly so. And your blood pressure and vital signs were stable. We placed you in observation to make sure you do not have a bleeding ulcer and you underwent an endoscopy. 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 The hernia has a few superficial erosions but there was no active bleeding. There is no blood in your stomach. Otherwise your esophagus and duodenum were normal. You did not have any tumors or masses. Since her hemoglobin is stable we think you can go home now. Plan of Treatment: Up with your primary care provider. They may have to do further investigations to find out why you have black tarry stools. Just because we did not find anything on the endoscopy that was the source of bleeding does not mean that you are not bleeding within your bowel. Care Goals: 1. Please stop aspirin. That can be a source of bleeding. And you are already on Eliquis. 2. Please see your primary care provider in the next 1 to 2 weeks in follow-up. Having please do something called a CBC to make sure your anemia is stable. 3. Please start omeprazole. It is an vkyi-yoz-lmpvwey medication. Take 20 mg once a day for the next month and then you can stop it. Assessment: Patient states that she understands the care goals and will follow through. No Smoking: If you smoke, Please STOP! Call for help. Follow-up with: Lobo Guaman DO [Primary Care Provider] -
[2021-10-30 10:18] LABS: MEAN CORPUSCULAR HEMOGLOBIN 31.9 pg (27.0-31.0); MEAN CORPUSCULAR HGB CONC 33.3 g/dL (32.0-36.0); MEAN CORPUSCULAR VOLUME 95.8 fL (81.0-99.0); MEAN PLATELET VOLUME 9.7 fL (7.9-10.8); RED BLOOD COUNT 3.13 10^6/uL (4.20-5.40); RED CELL DISTRIBUTION WIDTH 15.2 % (12.0-15.0); WHITE BLOOD COUNT 18.4 x10^3/uL (4.8-10.8)
[2021-10-30] MEDS: amLODIPine 5 MG TABLET PO SCH (10:34)
[2021-10-30] MEDS: DOXAZOSIN 4 MG TABLET PO SCH (10:34)
[2021-10-30 11:34] VITALS: BP 150/50
== END 2021-10-30 12:00 | disposition home or self-care (01) ==
LOC: ED 15:38 → MS2 18:55
PROVIDERS: ADMIT Internal Medicine; ATTEND Specialist
DX: K92.1 Melena (principal); K44.9 Diaphragmatic hernia without obstruction or gangrene; I11.0 Hypertensive heart disease with heart failure; I25.10 Atherosclerotic heart disease of native coronary artery without angina pectoris; I25.2 Old myocardial infarction; I48.0 Paroxysmal atrial fibrillation; I50.32 Chronic diastolic (congestive) heart failure; I73.9 Peripheral vascular disease, unspecified; E03.9 Hypothyroidism, unspecified; E78.00 Pure hypercholesterolemia, unspecified; M19.90 Unspecified osteoarthritis, unspecified site; H40.20X0 Unspecified primary angle-closure glaucoma, stage unspecified; R00.1 Bradycardia, unspecified; Z20.822 Contact with and (suspected) exposure to COVID-19; Z79.01 Long term (current) use of anticoagulants; Z79.82 Long term (current) use of aspirin; Z79.890 Hormone replacement therapy; Z79.899 Other long term (current) drug therapy; Z85.038 Personal history of other malignant neoplasm of large intestine; Z85.3 Personal history of malignant neoplasm of breast; Z86.73 Personal history of transient ischemic attack (TIA), and cerebral infarction without residual deficits; Z90.49 Acquired absence of other specified parts of digestive tract; Z90.710 Acquired absence of both cervix and uterus; Z92.3 Personal history of irradiation; Z95.1 Presence of aortocoronary bypass graft; Z98.51 Tubal ligation status
CPT/HCPCS: 36415; 43235; 80048; 80053; 82272; 85025; 85027; 86850; 86900; 86901; 87635; 93005; 96374; 96376; 99283; 99285; A9270; G0378